=== PATIENT | female | born 1990 | race Caucasian/White ===

== ENCOUNTER 2019-05-23 18:14 | Emergency (ER) | payer OTHER ==
[~2019-05-23] VITALS: Ht 160 cm; Wt 75.8 kg
[~2019-05-23 18:14] MED LIST: AMBIEN5 MG PO; CITALOPRAM HBR20 MG PO; CYCLOBENZAPRINE10 MG PO; IBUPROFEN800 MG PO; NORCO 5-325 TA1 EACH PO; PERCOCET 5-3251 EACH PO; PRENATAL FORMU1 EACH PO; PROMETHAZINE HC25 M1 PO; SPRINTEC1 EACH PO; TOPROL XL50 MG PO; ZOFRAN4 MG PO
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
[2019-05-23] MEDS ORDERED: AMITRIPTYLINE H25 MG PO (18:30)
== END 2019-05-23 22:41 | disposition home or self-care (01) ==
LOC: ED 18:14
PROC: 2W3CX1Z Immobilization of Right Lower Arm using Splint (ICD-10-PCS; principal; 2019-05-23)
DX: S63.501A Unspecified sprain of right wrist, initial encounter (principal); Z87.891 Personal history of nicotine dependence; Z91.048 Other nonmedicinal substance allergy status; Z88.8 Allergy status to other drugs, medicaments and biological substances; W01.0XXA Fall on same level from slipping, tripping and stumbling without subsequent striking against object, initial encounter
CPT/HCPCS: 29125; 73110; 73130; 99283-25

== ENCOUNTER 2019-05-29 18:09 | Emergency (ER) | payer OTHER ==
[~2019-05-29] VITALS: Ht 160 cm; Wt 75.8 kg
[~2019-05-29 18:09] MED LIST changes: +AMITRIPTYLINE H25 MG PO
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
[2019-05-29] MEDS ORDERED: NORCO 5-325 TA1 EACH PO ×2 (19:20→20:11)
== END 2019-05-29 20:30 | disposition home or self-care (01) ==
LOC: ED 18:09
DX: S63.501A Unspecified sprain of right wrist, initial encounter (principal); Z87.891 Personal history of nicotine dependence; Z91.040 Latex allergy status; Z88.8 Allergy status to other drugs, medicaments and biological substances; X58.XXXA Exposure to other specified factors, initial encounter
CPT/HCPCS: 99283

== ENCOUNTER 2019-06-17 08:07 | Emergency (ER) | payer SELFPAY ==
[~2019-06-17] VITALS: Ht 160 cm; Wt 75.8 kg
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
== END 2019-06-17 11:11 | disposition home or self-care (01) ==
LOC: ED 08:07
DX: N93.9 Abnormal uterine and vaginal bleeding, unspecified (principal); F41.9 Anxiety disorder, unspecified; F32.9 Major depressive disorder, single episode, unspecified; Z87.891 Personal history of nicotine dependence; Z91.018 Allergy to other foods; Z88.8 Allergy status to other drugs, medicaments and biological substances; Z79.899 Other long term (current) drug therapy
CPT/HCPCS: 81001; 85025; 87491; 87591; 99284

== ENCOUNTER 2020-11-30 08:34 | Emergency (ER) | payer SELFPAY ==
[~2020-11-30] VITALS: Ht 160 cm; Wt 75.7 kg
--- OUTSIDE RECORDS SUMMARY | 2020-11-30 08:36 | XMS ---
PreMana Notification: JUS LOPEZ Security Hand Gluer And Slicer Events No recent Security Events currently on file CRITERIA MET - PDMP CARE PROVIDERS Sarbjit Fernando Community Health Worker 10/02/2018-Salvador Bishop - PHONE: [phone] AARON GAITAN Obstetrics \T\ Gynecology 06/20/2019-Salvador Loera PHONE: Unknown Amy Concepcion Nurse Practitioner: Family Salvador VAZQUEZP PHONE: [phone] Care Guidelines exist for the following facilities: [facility] ( 06/04/2020 ) Alexandrea VISIT COUNT (12 MO.) 1 YASMINE De Jesus TOTAL 1 NOTE: Visits indicate total known visits. ED/UCC VISIT TRACKING (12 MO.) 11/30/2020 08:34 [facility] [place] TYPE: Emergency COMPLAINT: - FLANK PAIN INPATIENT VISIT TRACKING (12 MO.) No inpatient visits to display in this time frame [email or web address]
[2020-11-30] MEDS ORDERED: SULFAMETHOXAZO1 EAC1 PO (09:01)
[2020-11-30] MEDS ORDERED: TRAZODONE HCL150 MG PO (09:02)
[2020-11-30] MEDS ORDERED: PHENTERMINE HCL15 MG PO (09:02)
== END 2020-11-30 11:48 | disposition home or self-care (01) ==
LOC: ED 08:34
DX: R10.9 Unspecified abdominal pain (principal); Z87.891 Personal history of nicotine dependence; Z88.8 Allergy status to other drugs, medicaments and biological substances; Z91.018 Allergy to other foods; Z79.899 Other long term (current) drug therapy
CPT/HCPCS: 74176; 96374; 96375; 99284-25; J1170; J2405

== ENCOUNTER 2021-06-16 21:35 | Emergency (ER) | payer OTHER ==
[~2021-06-16] VITALS: Ht 160 cm; Wt 81.7 kg
[~2021-06-16 21:35] MED LIST changes: +PHENTERMINE HCL15 MG PO; +SULFAMETHOXAZO1 EAC1 PO; +TRAZODONE HCL150 MG PO
--- OUTSIDE RECORDS SUMMARY | 2021-06-16 21:38 | XMS ---
PreMana Notification: JUS LOPEZ Security Assembly Machine Set Up Mechanic Events No recent Security Events currently on file CRITERIA MET - PDMP CARE PROVIDERS ANDREA [facility] Medicine 12/03/2020-Current PHONE: [phone] Fernando Schaffer Community Health Worker 10/02/2018-Salvador Bishop - PHONE: [phone] AARON GAITAN Obstetrics \T\ Gynecology 06/20/2019-Salvador Loera PHONE: Unknown Care Guidelines exist for the following facilities: [facility] ( 06/04/2020 ) Care History Medical/Surgical 12/03/2020 [facility] - Patient is currently established with [facility]. If patient is seen in the ED during business hours. Please contact CHWs at [facility]. Care Recommendation: If this patient has had 5 or more Emergency Department visits in the last 12 months.\T\nbsp; Patient will require education on the scope and purpose of the ED as an acute care provider not a Primary Care Provider and should not be utilized for chronic conditions.\T\nbsp; These are guidelines and the provider should exercise clinical judgment when providing care. E.D. VISIT COUNT (12 MO.) 2 [facility]. TOTAL 2 NOTE: Visits indicate total known visits. ED/UCC VISIT TRACKING (12 MO.) 06/16/2021 21:36 [facility] [place] TYPE: Emergency COMPLAINT: - FLU SYMPTOMS 11/30/2020 08:34 [facility] [place] TYPE: Emergency COMPLAINT: - FLANK PAIN DIAGNOSES: - Other halfway (current) drug therapy - Unspecified abdominal pain - Personal history of nicotine dependence - Allergy status to other drugs, medicaments and biological substances - Allergy to other foods INPATIENT VISIT TRACKING (12 MO.) No inpatient visits to display in this time frame [email or web address]
[2021-06-16] MEDS ORDERED: METFORMIN HCL500 MG PO (21:51)
== END 2021-06-17 01:00 | disposition home or self-care (01) ==
LOC: ED 21:35
DX: U07.1 COVID-19 (principal); Z87.891 Personal history of nicotine dependence; Z91.018 Allergy to other foods; Z88.2 Allergy status to sulfonamides; Z79.84 Long term (current) use of oral hypoglycemic drugs
CPT/HCPCS: 99283-25; C9803; M0243; Q0244; U0003

== ENCOUNTER 2022-08-10 09:51 | Emergency (ER) | payer OTHER ==
[~2022-08-10] VITALS: Ht 160 cm; Wt 93.4 kg
[~2022-08-10 09:51] MED LIST changes: +DICLOFENAC SODI75 MG PO; +HYDROXYZINE HCL25 MG PO; +METFORMIN HCL500 MG PO; +SERTRALINE HCL25 MG PO; +SUDOGEST30 MG PO; +ULTRAM50 MG PO
--- OUTSIDE RECORDS SUMMARY | 2022-08-10 09:54 | XMS ---
PreManage Notification: JUS LOPEZ Security Advisory Services Associate Events No recent Security Events currently on file CRITERIA MET - [facility] - Has Care Guidelines - PDMP CARE PROVIDERS KASSANDRA MENDEZ Emergency Medicine 12/03/2020-Current PHONE: [phone] Fernando Schaffer Community Health Worker 10/02/2018-Current Bishop - PHONE: [phone] AARON GAITAN Obstetrics \T\ Gynecology 06/20/2019-Current BRYAN Loera PHONE: Unknown Guidelines Source: [facility] Guidelines Date: 06/19/2021 Other Information: Patient quarantining and has a work schedule that conflicts with Clinic hours. She knows of Thursday Walk In options. Additional care guidelines exist for the following facilities: [facility] ( 06/04/2020 ) Care History Medical/Surgical 12/03/2020 [facility] - Patient is currently established with [facility]. If patient is seen in the ED during business hours. Please contact CHWs at [facility]. Care Recommendation: If this patient has had [...] care. E.D. VISIT COUNT (12 MO.) 2 [facility]. TOTAL 2 NOTE: Visits indicate total known visits. ED/UCC VISIT TRACKING (12 MO.) 08/10/2022 09:52 [facility] [place] TYPE: Emergency COMPLAINT: - FALL 04/16/2022 21:12 [facility] [place] TYPE: Emergency COMPLAINT: - LEFT ANKLE AND KNEE INJ DIAGNOSES: - Other intermission coordinator (current) drug therapy - FPC (current) use of insulin - Allergy status to other drugs, medicaments and biological substances - Pain in left knee - Anxiety disorder, unspecified - Personal history of nicotine dependence - Sprain of unspecified ligament of left ankle, initial encounter - Depression, unspecified - Strain of unspecified muscle(s) and tendon(s) at lower leg level, left leg, initial encounter - Allergy to other foods - Fall (on) (from) unspecified stairs and steps, initial encounter INPATIENT VISIT TRACKING (12 MO.) No inpatient visits to display in this time frame [email or web address]
[2022-08-10] MEDS ORDERED: LINZESS145 MCG PO (12:34)
== END 2022-08-10 14:37 | disposition home or self-care (01) ==
LOC: ED 09:51
DX: S63.502A Unspecified sprain of left wrist, initial encounter (principal); S80.01XA Contusion of right knee, initial encounter; Z87.891 Personal history of nicotine dependence; Z88.8 Allergy status to other drugs, medicaments and biological substances; Z91.018 Allergy to other foods; Z79.899 Other long term (current) drug therapy; Z79.84 Long term (current) use of oral hypoglycemic drugs; W01.10XA Fall on same level from slipping, tripping and stumbling with subsequent striking against unspecified object, initial encounter
CPT/HCPCS: 73110; 73560; 99283-25

== ENCOUNTER 2023-08-30 20:42 | Emergency (ER) | payer OTHER ==
[~2023-08-30] VITALS: Ht 160 cm; Wt 92.5 kg
[~2023-08-30 20:42] MED LIST changes: +LINZESS145 MCG PO
[2023-08-30 21:50] LABS: BILIRUBIN, URINE NEGATIVE (negative); BLOOD/HGB, URINE NEGATIVE (Negative); KETONE, URINE TRACE (Negative); LEUK ESTERASE, URINE SMALL (negative); NITRITE, URINE POSITIVE (negative)
[2023-08-30 21:59] LABS: BACTERIA, URINE 1+ /hpf (negative); EPITHELIAL CELLS, URINE SQUAMOUS 1+ /lpf (0-1+)
[2023-08-30 22:01] LABS: REFLEX CULTURE, URINE Yes (No)
[2023-08-30] MEDS ORDERED: CEPHALEXIN500 M1 PO (22:12)
[2023-08-30] MEDS ORDERED: PYRIDIUM200 MG PO (22:12)
[2023-08-30 22:30] VITALS: BP 128/70
== END 2023-08-30 22:30 | disposition home or self-care (01) ==
LOC: ED 20:42
PROVIDERS: Emergency Medicine
DX: N39.0 Urinary tract infection, site not specified (principal); Z87.891 Personal history of nicotine dependence; Z88.8 Allergy status to other drugs, medicaments and biological substances; Z91.018 Allergy to other foods; Z79.899 Other long term (current) drug therapy
CPT/HCPCS: 51798; 81001; 87088; 99283; A9270

== ENCOUNTER 2024-09-12 09:58 | Emergency (ER) | payer OTHER ==
[~2024-09-12] VITALS: Ht 160 cm; Wt 79.4 kg
[~2024-09-12 09:58] MED LIST changes: +CEPHALEXIN500 M1 PO; +ESCITALOPRAM OX20 MG PO; +GABAPENTIN100 MG PO; +PYRIDIUM200 MG PO; +VICTOZA 3-0.6 MG/0.1 SUB-Q; +VITAMIN D310 MC1 PO; +ZOLPIDEM TARTRAT5 MG PO
[2024-09-12 11:05] VITALS: BP 103/68
== END 2024-09-12 11:00 | disposition home or self-care (01) ==
LOC: ED 09:58
DX: S29.012A Strain of muscle and tendon of back wall of thorax, initial encounter (principal); S46.911A Strain of unspecified muscle, fascia and tendon at shoulder and upper arm level, right arm, initial encounter; Z91.018 Allergy to other foods; Z88.8 Allergy status to other drugs, medicaments and biological substances; Z79.899 Other long term (current) drug therapy; X50.0XXA Overexertion from strenuous movement or load, initial encounter
CPT/HCPCS: 99283

== ENCOUNTER 2024-09-19 19:31 | Emergency (ER) | payer OTHER ==
[~2024-09-19] VITALS: Ht 160 cm; Wt 78.0 kg
[2024-09-19] MEDS ORDERED: TRAMADOL HCL 50 MG HOME.PACK PO ONE (21:30)
[2024-09-19 21:51] VITALS: BP 118/70
== END 2024-09-19 21:55 | disposition home or self-care (01) ==
LOC: ED 19:31
DX: S92.514A Nondisplaced fracture of proximal phalanx of right lesser toe(s), initial encounter for closed fracture (principal); Z87.891 Personal history of nicotine dependence; Z91.018 Allergy to other foods; Z88.8 Allergy status to other drugs, medicaments and biological substances; Z79.899 Other long term (current) drug therapy; W22.01XA Walked into wall, initial encounter
CPT/HCPCS: 73630; 99283; A9270